=== PATIENT | female | born 1945 | race Caucasian/White ===

== ENCOUNTER 2017-02-28 07:25 | Day surgery (SDC) | payer BC ==
[~2017-02-28 07:25] MED LIST: ASPIRIN EC81 M1 PO; COREG 3.1253.125 MG PO; COREG6.25 MG PO; LISINOPRIL5 MG PO; MOBIC7.5 MG PO; PLAVIX75 MG PO; ZANTAC150 MG PO
[2017-02-28 08:46] LABS: HEMATOCRIT 35.2 % (36.0-48.0); HEMOGLOBIN 11.2 g/dL (12-16); MCH 26.5 pg (26.0-34.0); MCHC 31.8 g/dL (31.0-37.0); MCV 83.4 fL (80.0-100.0); MEAN PLATELET VOLUME 8.8 fL (7.4-10.4); RBC 4.22 10x6/uL (4.00-5.40); WBC 6.9 10x3/uL (4.8-10.8)
[2017-02-28 09:27] VITALS: BP 142/73; BMI 31.9
--- NOTE | 2017-02-28 15:45 | NUR ---
1530--PT VOIDS WITHOUT DIFFICULTY, IV DC'D. MARY BROWNING 3049--DISCHARGE INSTRUCTIONS GIVEN, PT VERBALIZES UNDERSTANDING. PT OFF UNIT VIA WC. MARY BROWNING
--- NOTE | 2017-03-28 11:32 | OP ---
PATIENT NAME: KIZZY HURTADO MEDICAL RECORD: [id number] :41 LOCATION:[facility] ADMISSION DATE: SURGEON: DOC CARPENTER DPM DATE OF OPERATION: 02/28/2017 PREOPERATIVE DIAGNOSIS: Sequela from Lisfranc fracture dislocation 1 year ago. POSTOPERATIVE DIAGNOSIS: Sequela from Lisfranc fracture dislocation 1 year ago. PROCEDURES: 1. Medial cuneiform to middle cuneiform joint fusion. 2. Second met to middle cuneiform joint fusion. ANESTHESIA: Local with IV sedation utilizing lidocaine and Marcaine plain, approximately 18 cc total around the mid foot. HEMOSTASIS: Left thigh tourniquet at 350 mmHg. PREOPERATIVE DETAILS: The patient was taken to the OR, placed on the operating table in a supine position. This was followed by induction of general anesthesia and infiltration of local anesthetic. The left extremity was then prepped and draped in the usual aseptic technique, followed by exsanguination and inflation of tourniquet. DESCRIPTION OF PROCEDURE: Procedure #1, medial cuneiform to middle cuneiform joint fusion: A 15-blade was used to create an incision on the dorsal aspect of the left foot overlying the cuneiforms. The incision was deepened down through subcutaneous tissue being sure to avoid all vital structures. The superficial nerves as well as the deep peroneal nerve as well as the dorsalis pedis artery were visualized and retracted in the wound and preserved. Dissection was carried down to the periosteum. The middle and medial cuneiform joint was exposed. A sagittal saw was used to resect both surfaces, followed by guidewires being placed from medial to lateral. C-arm was used to verify good placement. Overdrill was performed and 2 screws were placed across the fusion site noting excellent rigid internal fixation, placement with C-arm as well as abutment of the fusion site. The incision as described in #1 was carried distally being sure to avoid the vital structures to the second met to middle cuneiform joint, which was freed and resected with sagittal saw followed by placement of bone graft and a 4-hole plate over the top utilizing C-arm for verification of good placement. Excellent alignment was noted. That was procedure #2 of second met to middle cuneiform joint fusion. The deep tissue was then coapted with 2-0 Vicryl, the subcutaneous tissue with 4-0 Rapide, and the skin was closed with 5-0 Prolene in a subcuticular technique followed by Dermabond. The small incisions for the guidewires were also closed with 5-0 Prolene in a simple interrupted technique followed by Dermabond. Adaptic, 4 x 4, and Conform were used to dress the wound, followed by application of modified Smith compression dressing. Tourniquet was deflated. POSTOPERATIVE DETAILS: The patient tolerated the procedure well and left the OR with vital signs stable and vascular status at preop levels. The patient was transported to recovery per anesthesia in stable condition. TRANSINT:[id number] Voice Confirmation ID: [id number] DOCUMENT ID: [id number] OPERATIVE REPORT [id number] KIZZY HURTADO, DOC PIERSON at 1132 CC: [id number] DICTATION DATE: 02/28/17 1307 CASINO GAMING WORKER: 02/28/17 1333 [facility] 02/28/17 [address] [place] [address]
== END 2017-02-28 15:40 | disposition home or self-care (01) ==
LOC: D.OPS 07:25 → D.PAN 12:30 → D.OPS 15:40
PROVIDERS: Anesthesiology
DX: S93.32 Subluxation and dislocation of tarsometatarsal joint (principal); Z01.812 Encounter for preprocedural laboratory examination; X58.XXXS Exposure to other specified factors, sequela

== ENCOUNTER → 2019-06-24 12:17 | Outpatient (CLI) | payer BC | END | disposition home or self-care (01) | LOC: D.CT 12:17 | PROVIDERS: ATTEND Orthopaedic Surgery | DX: M93.20 Osteochondritis dissecans of unspecified site (principal) ==

== ENCOUNTER 2019-09-12 14:30 | Inpatient (IN) | payer BC ==
[~2019-09-12] VITALS: Ht 160 cm; Wt 81.6 kg
[2019-09-30] MEDS ORDERED: BUTALB-APAP-CA1 EACH PO (15:48)
[2019-09-30] MEDS ORDERED: HYDROCODON-ACE1 EA10 PO (15:49)
[2019-09-30] MEDS ORDERED: PROTONIX40 MG PO (15:49)
[2019-09-30] MEDS ORDERED: ZETIA10 MG PO (15:49)
[2019-10-01 12:06] LABS: ANION GAP 5.9 mmol/L (8-16); CALCIUM 8.8 mg/dL (8.5-10.1); CARBON DIOXIDE 33.1 mmol/L (21.0-32.0); CREATININE - SERUM 0.8 mg/dL (0.6-1.3)
[2019-10-01 12:10] LABS: BASOPHILS 0.2 % (0-2); EOSINOPHILS 1.2 % (0-7); HEMATOCRIT 41.2 % (36.0-48.0); IMMATURE GRANULOCYTES 0.3 % (0-5); LYMPHOCYTES 25.3 % (15-50); MCH 27.3 pg (26.0-34.0); MCHC 31.6 g/dL (31.0-37.0); MCV 86.6 fL (80.0-100.0); MEAN PLATELET VOLUME 8.8 fL (7.4-10.4); PLATELET COUNT 292 10x3/uL (130-400); RBC 4.76 10x6/uL (4.00-5.40); RDW 14.3 % (11.5-14.5); WBC 9.1 10x3/uL (4.8-10.8)
[2019-10-01 12:22] LABS: APTT 27.5 SECONDS (22.8-39.4); INR 0.92 (0.85-1.17); PROTIME 12.3 SECONDS (11.6-15.0)
[2019-10-01 13:48] LABS: BILIRUBIN NEGATIVE (NEGATIVE); GLUCOSE NEGATIVE (NEGATIVE); KETONE NEGATIVE (NEGATIVE); NITRITE NEGATIVE (NEGATIVE); RED CELLS - URINE 0-5 /hpf (0-5); UROBILINOGEN NORMAL (NORMAL)
[2019-10-01 13:49] LABS: BACTERIA MODERATE /hpf (NEGATIVE); EPITHELIAL CELLS 0-5 /hpf (0-5)
--- NOTE | 2019-10-01 13:54 | NUR ---
1355-ua results called to dr escobedo office.
[2019-10-06] VITALS (11 sets, daily range): BP systolic 115–147; BP diastolic 51–95; BMI 32.8; BMI 31.9
[2019-10-06] MEDS ORDERED: ANTIBIOTIC (08:36)
[2019-10-06 09:15] LABS: BACTERIA MODERATE /hpf (NEGATIVE); BILIRUBIN NEGATIVE (NEGATIVE); EPITHELIAL CELLS 0-5 /hpf (0-5); GLUCOSE NEGATIVE (NEGATIVE); KETONE NEGATIVE (NEGATIVE); NITRITE NEGATIVE (NEGATIVE); RED CELLS - URINE 0-5 /hpf (0-5); SPECIFIC GRAVITY 1.015 (1.005-1.020); UROBILINOGEN NORMAL (NORMAL); WHITE CELLS - URINE 0-5 /hpf (NEGATIVE)
--- NOTE | 2019-10-06 12:01 | NUR ---
ICE APPLIED ORDERED. CALLED FOR POST OP XRAY.
--- NOTE | 2019-10-06 19:00 | NUR ---
CHELLE AND TONY AT BEDSIDE ASSISTING PATIENT ON AND OFF BEDPAN. ALSO PLACED PATIENT ON CPM MACHINE AT THIS TIME. BED IN LOWEST POSITION AND CALL LIGHT WITHIN REACH. ENCOURAGED THE PATIENT TO CALL IF SHE HAS NEEDS. WILL CONTINUE TO MONITOR.
[2019-10-07 00:07] VITALS: BP 117/49
[2019-10-07 03:49] VITALS: BP 158/59
[2019-10-07 06:43] LABS: HEMATOCRIT 38.1 % (36.0-48.0); HEMOGLOBIN 11.8 g/dL (12-16); MCH 26.8 pg (26.0-34.0); MCV 86.6 fL (80.0-100.0); MEAN PLATELET VOLUME 9.3 fL (7.4-10.4); RBC 4.4 10x6/uL (4.00-5.40); RDW 14.5 % (11.5-14.5); WBC 9.3 10x3/uL (4.8-10.8)
[2019-10-07 08:45] VITALS: BP 144/54
--- NOTE | 2019-10-07 08:53 | NUR ---
ASSESSMENT COMPLETE, VS STABLE. PATIENT CPM REMOVED. RECIEVED SCHEDULED MEDS. COREG NOT GIVEN. BP 144/54. LEFTY HOSE OFF SINCE SHIFT CHANGE. PUT BACK ON LEFT LEG ALONG WITH SCD. RIGHT FOOT PLEXI PULSE PLACED. IV INTACT. NO COMPLAINTS AT THIS TIME. WILL CONTINUE TO MONITOR. CALL LIGHT WITHIN REACH.
[2019-10-07 10:41] VITALS: Ht 160 cm; Wt 81.6 kg
--- NOTE | 2019-10-07 12:56 | OP ---
PATIENT NAME: KIZZY HURTADO MEDICAL RECORD: [id number] :41 LOCATION:D.M3 D.1209 ADMISSION DATE:10/06/19 SURGEON: PAULINA CERRATO MD DATE OF OPERATION: 10/06/2019 PREOPERATIVE DIAGNOSES: Degenerative arthritis of the right knee. POSTOPERATIVE DIAGNOSIS: Degenerative arthritis of the right knee. PROCEDURE: Right total knee arthroplasty. SURGEON: Paulina Cerrato MD ANESTHESIA: General. INTRAOPERATIVE COMPLICATIONS: None. SUMMARY OF PATHOLOGIC FINDINGS: The patient had medial joint line wears along with severe patellofemoral joint wear. IMPLANTS USED: Rocio triathlon total knee arthroplasty, press fit size 4 distal femur, size 4 tibial baseplate, size 9 polyethylene insert, and size 31 mm patella. FOSTER CARE SOCIAL WORKER SURGEON: Vijay Delarosa. SECOND FOSTER CARE SOCIAL WORKER SURGEON: Ziggy Heath FSA OPERATIVE SUMMARY IN DETAIL: After obtaining the appropriate preoperative orthopedic surgery consents as well as anesthetic consultation, evaluation and clearance, the patient was brought to the operating room and placed on the operating table in supine position. After adequate general laryngeal mask airway was administered, tourniquet was placed about the proximal aspect of the right lower extremity. Right lower extremity was then prepped and draped in routine sterile fashion. Leg was elevated, exsanguinated, and tourniquet was inflated to 350 mmHg. At this point, the appropriate timeout was taken and agreed upon by all given the patient's unique identifiers. Routine midline incision was made, taken down to the level of the knee joint. Paramedian arthrotomy was performed. Patella was everted and the distal femur was exposed. Soft tissue excision was done in the usual fashion. An intramedullary guide hole was created for distal femoral cut using intramedullary guidance. Distal femoral cuts were made. The proximal tibia was completely exposed. Further soft tissue was then followed by creating an intramedullary guide hole to the proximal tibia for proximal tibia cut. Proximal tibia cuts were made. Appropriate measurements were taken. Chamfer cuts were then made on the distal femur. All excess bone and osteophytes were removed. Trials were put into place corresponding to the above-mentioned final implants. They were taken through range of motion and found to be stable in all planes. Distal femur was prepared, followed by proximal tibial preparations for press fit. Arthritic surface of patella was excised in preparation for a 31 x 9 patella. Wound was then irrigated copiously in pulsatile lavage fashion. At this point, components were put into place using press fit fashion. After they were put into place, range of motion was taken and found to be stable in all planes with excellent patellar tracking. A gram vancomycin and a gram of tobramycin were then placed into the cavity. The knee was then closed by LAYA Gutierres and Gregorio OPERATIVE REPORT [id number] KIZZY HURTADO FA using #2 Ethibond for the paramedian arthrotomy followed #1 Vicryl, 2-0 Vicryl, and skin wong. Sterile dressings were applied. The patient was awakened and taken to the recovery room in stable condition. All final needle and sponge counts were correct. TRANSINT:[id number] Voice Confirmation ID: [id number] DOCUMENT ID: [id number] SAQIB LINDSAY, PAUILNA WEISS at 1256 CC: [id number] DICTATION DATE: 10/06/19 1127 ANGULAR DEVELOPER: 10/06/19 2154 ADM IN [facility] [address] [place] [address]
[2019-10-07 15:21] VITALS: BP 142/65
--- NOTE | 2019-10-07 17:10 | MORECARE ---
CASE MANAGEMENT DISCHARGE SUMMARY PATIENT: KIZZY HURTADO UNIT: [id number] ADM DATE: 10/06/19 AGE: 74 : 43 SEX: F ROOM/BED: D.1209 AUTHOR: MACKENZIE ANN PHYSICIAN: REFERRING PHYSICIAN: PAULINA CERRATO MD DATE OF SERVICE: 10/07/19 Discharge Plan Patient Name: KIZZY HURTADO Facility: [facility]:[place] : 1945 Planned Disposition: Home Anticipated Discharge Date: Discharge Date: Expected LOS: Initial Reviewer: [email or web address] Initial Review Date: 10/06/2019 Generated: 10/07/19 6:09 pm Patient Name: KIZZY HURTADO Page [id number] at 1710 All edits/amendments must be made on the electronic document DICTATION DATE: 10/07/191709 BRAND LEADER: SPENCER 10/07/191709 RPT#: [id number] DC DATE: STATUS: ADM IN [facility] [address] [place] [address] END OF REPORT
--- NOTE | 2019-10-07 17:16 | MORECARE ---
CASE MANAGEMENT DISCHARGE SUMMARY PATIENT: KIZZY HURTADO UNIT: [id number] ADM DATE: 10/06/19 AGE: 74 : 43 SEX: F ROOM/BED: D.1209 AUTHOR: SETH,DOC PHYSICIAN: REFERRING PHYSICIAN: PAULINA CERRATO MD DATE OF SERVICE: 10/07/19 Discharge Plan Patient Name: KIZZY HURTADO Facility: [facility]:[place] : 1945 Planned Disposition: Home Anticipated Discharge Date: Discharge Date: Expected LOS: Initial Reviewer: [email or web address] Initial Review Date: 10/06/2019 Generated: 10/07/19 6:16 pm Comments DCP- Discharge Planning Updated by [email or web address]: Jolanta Baker on 10/07/19 4:[address] Patient Name: KIZZY HURTADO Admission Status: Elective Accout number: [id number] Admission Date: 10-06-2019 : 1945 Admission Diagnosis:UNILATERAL PRIMARY OSTEOARTHRITIS, RIGHT KNEE Attending: PAULINA CERRATO Current LOS: 1 Anticipated DC Date: Planned Disposition: Home Primary Insurance: [employer] OUT OF STATE Discharge Planning Comments: CM met with patient to complete initial dc planning assessment. CM educated patient on the CM role and verbal consent given by patient to complete assessment. Patient lives at home with family. Patient is independent. At discharge patient plans to return home and feels this is a safe discharge. CM discussed availability of home health, rehab services, and medical equipment. Patient would like to have outpatient therapy with [facility] [phone] . CLIF signed CM will fax orders Patient will have family to transport home. Patient denied known discharge needs at this time. CM will continue to follow and will assist as needed with dc plans/needs. Community Outreach Manager: Jolanta Baker DCPIA - Discharge Planning Initial Assessment Updated by [email or web address]: Jolanta Baker on 10/07/19 5:12 pm * Is the patient Alert and Oriented? Yes * How many steps to enter\exit or inside your home? * PCP GHULAM DICKERSON * [facility] * Preadmission Environment Home with Family * ADLs Independent * Other Equipment WALKER, CPM, BSC - KENIX * List name and contact numbers for known caregivers / representatives who currently or will assist patient after discharge: JAMAAL HURTADO -[facility]- [phone] * Verbal permission to speak to the caregivers and representatives has been obtained from the patient. No * Community resources currently utilized None * Additional services required to return to the preadmission environment? No * Can the patient safely return to the preadmission environment? Yes * Has this patient been hospitalized within the prior 30 days at any hospital? No Last DP export: 10/07/19 4:10 p Patient Name: KIZZY HURTADO Page [phone] at 1716 All edits/amendments must be made on the electronic document DICTATION DATE: 10/07/191715 PROFESSIONAL FEE CODER: SPENCER 10/07/191715 RPT#: [id number] DC DATE: STATUS: ADM IN [facility] [address] [place] [address] END OF REPORT
--- NOTE | 2019-10-07 17:23 | MORECARE ---
CASE MANAGEMENT DISCHARGE SUMMARY PATIENT: KIZZY HURTADO UNIT: [id number] ADM DATE: 10/06/19 AGE: 74 : 43 SEX: F ROOM/BED: D.1209 AUTHOR: SETH,DOC PHYSICIAN: REFERRING PHYSICIAN: PAULINA CERRATO MD DATE OF SERVICE: 10/07/19 Discharge Plan Patient Name: KIZZY HURTADO Facility: [facility]:[place] : 1945 Planned Disposition: Home Anticipated Discharge Date: Discharge Date: Expected LOS: Initial Reviewer: [email or web address] Initial Review Date: 10/06/2019 Generated: 10/07/19 6:23 pm Comments DCP- Discharge Planning Updated by [email or web address]: Jolanta Baker on 10/07/19 4:[address] Patient Name: KIZZY HURTADO Admission Status: Elective Accout number: [id number] Admission Date: 10-06-2019 : 1945 Admission Diagnosis:UNILATERAL PRIMARY OSTEOARTHRITIS, RIGHT KNEE Attending: PAULINA CERRATO Current LOS: 1 Anticipated DC Date: Planned Disposition: Home Primary Insurance: [employer] OUT OF STATE Discharge Planning Comments: CM met with patient to complete initial dc planning assessment. CM educated patient on the CM role and verbal consent given by patient to complete assessment. Patient lives at home with family. Patient is independent. At discharge patient plans to return home and feels this is a safe discharge. CM discussed availability of home health, rehab services, and medical equipment. Patient would like to have outpatient therapy with [facility] [phone] . CLIF signed CM will fax orders Patient will have family to transport home. Patient denied known discharge needs at this time. CM will continue to follow and will assist as needed with dc plans/needs. Quality Control Clerk: Jolanta Baker DCPIA - Discharge Planning Initial Assessment Updated by [email or web address]: Jolanta Baker on 10/07/19 5:12 pm * Is the patient Alert and Oriented? Yes * How many steps to enter\exit or inside your home? * PCP GHULAM DICKERSON * [facility] [place] * Preadmission Environment Home with Family * ADLs Independent * Other Equipment WALKER, CPM, BSC - KENIX * List name and contact numbers for known caregivers / representatives who currently or will assist patient after discharge: JAMAAL HURTADO -[facility]- [phone] * Verbal permission to speak to the caregivers and representatives has been obtained from the patient. No * Community resources currently utilized None * Additional services required to return to the preadmission environment? No * Can the patient safely return to the preadmission environment? Yes * Has this patient been hospitalized within the prior 30 days at any hospital? No External Providers External Provider: OTHER-OTHER Next Contact Date: Service Request Date: Service Type: Resolution: Reviewer: Comments: Last DP export: 10/07/19 4:16 p Patient Name: KIZZY HURTADO Page [phone] at 1723 All edits/amendments must be made on the electronic document DICTATION DATE: 10/07/191722 THERAPEUTIC RECREATION SPECIALIST: SPENCER 10/07/191722 RPT#: [id number] DC DATE: STATUS: ADM IN [facility] [address] [place] [address] END OF REPORT
--- NOTE | 2019-10-07 18:50 | NUR ---
PATIENT IN BED WITH IV INTACT. NO COMPLAINTS OR SIGNS OF DISTRESS. CPM ON AND WORKING. OFF AT 2100. TEDS, PLEXI'S AND SCD ON. CALL LIGHT WITHIN REACH.
--- NOTE | 2019-10-07 19:47 | NUR ---
ALERT RESTING IN BED CPM IN USE, DENIES PAIN OR NEEDS AT THIS TIME, SEE SHIFT ASSESSMENT, CALL LIGHT IN REACH
[2019-10-07 20:00] VITALS: BP 174/62
--- NOTE | 2019-10-07 20:00 | NUR ---
ALERT RESTING IN BED, CPM IN USE, DENIES PAIN OR NEEDS AT THIS TIME, SEE SHIFT ASSESSMENT, CALL LIGHT IN REACH
--- NOTE | 2019-10-07 21:40 | NUR ---
PT DIRECTOR OF EMPLOYER SERVICES LIGHT, PT PLACED ON BED GARCIA, VOIDED 125 MLS OF LIGHT YELLOW URINE BY SELF WITH NO DIFFICULTY, DEN CARE DONE WITH WET WARM WIPES, PINK PAD CHANGED, PT REQUESTS PAIN MED WHEN DUE, INFORMED PT THAT I WILL INFORM HER NURSE, PT DENIES FURTHER NEEDS, BED IN LOW POSITION, SIDE RAILS X 2, CALL LIGHT IN REACH
[2019-10-08] VITALS: BP 105/67; BP 172/68
[2019-10-08 07:02] LABS: HEMATOCRIT 36.3 % (36.0-48.0); HEMOGLOBIN 11.5 g/dL (12-16); MCH 27.3 pg (26.0-34.0); MCHC 31.7 g/dL (31.0-37.0); MCV 86.2 fL (80.0-100.0); MEAN PLATELET VOLUME 9.1 fL (7.4-10.4); RBC 4.21 10x6/uL (4.00-5.40); RDW 14.7 % (11.5-14.5); WBC 11.4 10x3/uL (4.8-10.8)
--- NOTE | 2019-10-08 08:15 | NUR ---
PATIENT NAUSEATED AND NOT FEELING WELL. BP SLIGHTLY ELEVATED. PATIENT ON CPM AT THIS TIME AND HURTING. STATED SHE JUST ISNT FEELING WELL TODAY. IV INTACT. WILL CONTINUE TO MONITOR.
--- NOTE | 2019-10-08 08:55 | NUR ---
PATIENT RECIEVED DIYA AND ABUNDIO. CPM REMOVED. WAITING FOR PT. CALL LIGHT WITHIN REACH.
[2019-10-08 08:56] VITALS: BP 196/65
[2019-10-08 10:45] VITALS: BP 130/46
--- NOTE | 2019-10-08 10:45 | NUR ---
PT HERE WORKING WITH PATIENT. PATIENT NOT DOING WELL. DIZZY AND WENT BACK TO BED. BP 130/46 NOW. WILL CONTINUE TO MONITOR. PATIENT STATED SHE JUST WANTED TO TRY TO NAP AT THIS TIME. CALL LIGHT WITHIN REACH.
--- NOTE | 2019-10-08 11:33 | NUR ---
SPOKE WITH DR. SALMERON AT THIS TIME ABOUT PATIENT BP. NEW ORDERS RECIEVED.
[2019-10-08 12:36] LABS: BASOPHILS 0.1 % (0-2); EOSINOPHILS 0.4 % (0-7); HEMATOCRIT 34.5 % (36.0-48.0); HEMOGLOBIN 11.1 g/dL (12-16); IMMATURE GRANULOCYTES 0.3 % (0-5); LYMPHOCYTES 12.4 % (15-50); MCH 27.5 pg (26.0-34.0); MCHC 32.2 g/dL (31.0-37.0); MCV 85.4 fL (80.0-100.0); MEAN PLATELET VOLUME 8.8 fL (7.4-10.4); MONOCYTES 8.6 % (2-11); NEUTROPHILS 78.2 % (40-80); PLATELET COUNT 224 10x3/uL (130-400); RBC 4.04 10x6/uL (4.00-5.40); RDW 14.6 % (11.5-14.5); WBC 13.9 10x3/uL (4.8-10.8)
[2019-10-08 13:35] VITALS: BP 1146/52; BP 146/52
[2019-10-08 17:41] VITALS: BP 151/61
--- NOTE | 2019-10-08 18:40 | NUR ---
PATIENT IN BED WITH CPM ON. MAY REMOVE AT 2049. PATIENT FEELING ALOT BETTER THAN EARLIER. NAUSEA COMPLETELY GONE AND WAS ABLE TO GET UP AND SIT IN CHAIR. NOTIFIED OF UA NEEDED. VERBALIZED UNDERSTANDING. CALL LIGHT WITHIN REACH.
--- NOTE | 2019-10-08 20:00 | NUR ---
ALERT RESTING IN BED CPM IN USE, DENIES PAIN OR NEEDS AT THIS TIME, SEE SHIFT ASSESSMENT, CALL LIGHT IN REACH
[2019-10-08 21:10] VITALS: BP 143/68
[2019-10-09 03:45] LABS: BILIRUBIN NEGATIVE (NEGATIVE); GLUCOSE NEGATIVE (NEGATIVE); KETONE NEGATIVE (NEGATIVE); NITRITE NEGATIVE (NEGATIVE); SPECIFIC GRAVITY 1.015 (1.005-1.020); UROBILINOGEN NORMAL (NORMAL)
[2019-10-09 03:51] LABS: BACTERIA FEW /hpf (NEGATIVE); EPITHELIAL CELLS 0-5 /hpf (0-5); RED CELLS - URINE 0-5 /hpf (0-5); WHITE CELLS - URINE 0-5 /hpf (NEGATIVE)
[2019-10-09 05:18] VITALS: BP 146/64
[2019-10-09 06:37] LABS: ANION GAP 9.3 mmol/L (8-16); CALCIUM 8.1 mg/dL (8.5-10.1); CARBON DIOXIDE 29.8 mmol/L (21.0-32.0); CREATININE - SERUM 0.8 mg/dL (0.6-1.3); MAGNESIUM - SERUM 2.2 mg/dL (1.8-2.4); POTASSIUM - SERUM 4.1 mmol/L (3.5-5.1)
[2019-10-09 07:29] LABS: BASOPHILS 0.1 % (0-2); EOSINOPHILS 0.5 % (0-7); HEMATOCRIT 34.3 % (36.0-48.0); HEMOGLOBIN 10.8 g/dL (12-16); IMMATURE GRANULOCYTES 0.3 % (0-5); LYMPHOCYTES 15.6 % (15-50); MCH 27.3 pg (26.0-34.0); MCHC 31.5 g/dL (31.0-37.0); MCV 86.6 fL (80.0-100.0); MEAN PLATELET VOLUME 9.5 fL (7.4-10.4); MONOCYTES 9.8 % (2-11); NEUTROPHILS 73.7 % (40-80); PLATELET COUNT 257 10x3/uL (130-400); RBC 3.96 10x6/uL (4.00-5.40); RDW 14.7 % (11.5-14.5); WBC 14.2 10x3/uL (4.8-10.8)
--- NOTE | 2019-10-09 07:30 | NUR ---
AWAKE AND ALERT. ORIENTED X3. REQUESTED PAIN MEDS AT THIS TIME. GIVEN HYDORCODONE PO FOR SAME. WILL MONITOR. LUNGS ARE CLEAR BILATERALLY, NO COUGH NOTED. REPORTS USING IS INSTRUCTED. SKIN IS INTACT WITHOUT REDNESS EXCEPT INCISION TO LEFT KNEE WHICH HAS A DRY INTACT DRESSING IN PLACE. SL TO LEFT FOREARM IS PATENT WITHOUT REDNESS AT INSERTION SITE. DENIES NEEDS.
[2019-10-09 08:20] VITALS: BP 125/83
[2019-10-09 11:35] VITALS: BP 153/61
[2019-10-09] MEDS ORDERED: ELIQUIS2.5 MG PO (12:45)
[2019-10-09] MEDS ORDERED: HYDROCODON-ACE1 EA10 PO (12:45)
[2019-10-09] MEDS ORDERED: MACROBID100 MG PO (12:45)
--- NOTE | 2019-10-09 14:26 | MORECARE ---
CASE MANAGEMENT DISCHARGE SUMMARY PATIENT: KIZZY HURTADO UNIT: [id number] ADM DATE: 10/06/19 AGE: 74 : 43 SEX: F ROOM/BED: D.1209 AUTHOR: SETH,DOC PHYSICIAN: REFERRING PHYSICIAN: PAULINA CERRATO MD DATE OF SERVICE: 10/09/19 Discharge Plan Patient Name: KIZZY HRUTADO Facility: [facility]:[place] : 1945 Planned Disposition: Home Anticipated Discharge Date: Discharge Date: Expected LOS: Initial Reviewer: [email or web address] Initial Review Date: 10/06/2019 Generated: 10/09/19 3:25 pm Comments DCP- Discharge Planning Updated by [email or web address]: Jolanta Baker on 10/07/19 4:[address] Patient Name: KIZZY HURTADO Admission Status: Elective Accout number: [id number] Admission Date: 10-06-2019 : 1945 Admission Diagnosis:UNILATERAL PRIMARY OSTEOARTHRITIS, RIGHT KNEE Attending: PAULINA CERRATO Current LOS: 1 Anticipated DC Date: Planned Disposition: Home Primary Insurance: [employer] OUT OF STATE Discharge Planning Comments: CM met with patient to complete initial dc planning assessment. CM educated patient on the CM role and verbal consent given by patient to complete assessment. Patient lives at home with family. Patient is independent. At discharge patient plans to return home and feels this is a safe discharge. CM discussed availability of home health, rehab services, and medical equipment. Patient would like to have outpatient therapy with [facility] [phone] . CLIF signed CM will fax orders Patient will have family to transport home. Patient denied known discharge needs at this time. CM will continue to follow and will assist as needed with dc plans/needs. Gymnastic Coach: Jolanta Baker DCPIA - Discharge Planning Initial Assessment Updated by [email or web address]: Jolanta Baker on 10/07/19 5:12 pm * Is the patient Alert and Oriented? Yes * How many steps to enter\exit or inside your home? * PCP GHULAM DICKERSON * [facility] [place] * Preadmission Environment Home with Family * ADLs Independent * Other Equipment WALKER, CPM, BSC - KENIX * List name and contact numbers for known caregivers / representatives who currently or will assist patient after discharge: JAMAAL HURTADO -[facility]- [phone] * Verbal permission to speak to the caregivers and representatives has been obtained from the patient. No * Community resources currently utilized None * Additional services required to return to the preadmission environment? No * Can the patient safely return to the preadmission environment? Yes * Has this patient been hospitalized within the prior 30 days at any hospital? No External Providers External Provider: [facility] Next Contact Date: Service Request Date: Service Type: Resolution: Reviewer: Comments: Last DP export: 10/07/19 4:23 p Patient Name: KIZZY HURTADO Page [phone] at 1426 All edits/amendments must be made on the electronic document DICTATION DATE: 10/09/19 142 MANAGER MENTAL HEALTH: SPENCER 10/09/19 1425 RPT#: [id number] DC DATE: STATUS: ADM IN [facility] [address] [place] [address] END OF REPORT
--- NOTE | 2019-10-09 14:33 | MORECARE ---
CASE MANAGEMENT DISCHARGE SUMMARY PATIENT: KIZZY HURTADO UNIT: [id number] ADM DATE: 10/06/19 AGE: 74 : 43 SEX: F ROOM/BED: D.1209 AUTHOR: SETH,DOC PHYSICIAN: REFERRING PHYSICIAN: PAULINA CERRATO MD DATE OF SERVICE: 10/09/19 Discharge Plan Patient Name: KIZZY HURTADO Facility: [facility]:[place] : 1945 Planned Disposition: Home Anticipated Discharge Date: Discharge Date: Expected LOS: Initial Reviewer: [email or web address] Initial Review Date: 10/06/2019 Generated: 10/09/19 3:33 pm Comments DCP- Discharge Planning Updated by [email or web address]: Jolanta Baker on 10/07/19 4:[address] Patient Name: KIZZY HURTADO Admission Status: Elective Accout number: [id number] Admission Date: 10-06-2019 : 1945 Admission Diagnosis:UNILATERAL PRIMARY OSTEOARTHRITIS, RIGHT KNEE Attending: PAULINA CERRATO Current LOS: 1 Anticipated DC Date: Planned Disposition: Home Primary Insurance: [employer] OUT OF STATE Discharge Planning Comments: CM met with patient to complete initial dc planning assessment. CM educated patient on the CM role and verbal consent given by patient to complete assessment. Patient lives at home with family. Patient is independent. At discharge patient plans to return home and feels this is a safe discharge. CM discussed availability of home health, rehab services, and medical equipment. Patient would like to have outpatient therapy with [facility] [phone] . CLIF signed CM will fax orders Patient will have family to transport home. Patient denied known discharge needs at this time. CM will continue to follow and will assist as needed with dc plans/needs. Manager Exchange: Jolanta Baker DCPIA - Discharge Planning Initial Assessment Updated by [id number]: Jolanta Baker on 10/07/19 5:12 pm * Is the patient Alert and Oriented? Yes * How many steps to enter\exit or inside your home? * PCP GHULAM DICKERSON * [facility] [place] * Preadmission Environment Home with Family * ADLs Independent * Other Equipment WALKER, CPM, BSC - KENIX * List name and contact numbers for known caregivers / representatives who currently or will assist patient after discharge: JAMAAL HURTADO -[facility]- [phone] * Verbal permission to speak to the caregivers and representatives has been obtained from the patient. No * Community resources currently utilized None * Additional services required to return to the preadmission environment? No * Can the patient safely return to the preadmission environment? Yes * Has this patient been hospitalized within the prior 30 days at any hospital? No External Providers External Provider: Ushi Next Contact Date: Service Request Date: Service Type: Resolution: Reviewer: Comments: Last DP export: 10/09/19 1:26 p Patient Name: KIZZY HURTADO Page [phone] at 1433 All edits/amendments must be made on the electronic document DICTATION DATE: 10/09/191432 WORKPLACE REHABILITATION OFFICER: SPENCER 10/09/19 1433 RPT#: [id number] IN DATE: STATUS: ADM IN [facility] [address] [place] [address] END OF REPORT
--- NOTE | 2019-10-09 14:56 | MORECARE ---
CASE MANAGEMENT DISCHARGE SUMMARY PATIENT: KIZZY HURTADO UNIT: [id number] ADM DATE: 10/06/19 AGE: 74 : 41 SEX: F ROOM/BED: D.1209 AUTHOR: SETH,DOC PHYSICIAN: REFERRING PHYSICIAN: PAULINA CERRATO MD DATE OF SERVICE: 10/09/19 Discharge Plan Patient Name: KIZZY HURTADO Facility: [facility]:[place] : 1945 Planned Disposition: Home Anticipated Discharge Date: Discharge Date: Expected LOS: Initial Reviewer: [email or web address] Initial Review Date: 10/06/2019 Generated: 10/09/19 3:55 pm Comments DCP- Discharge Planning Updated by [email or web address]: Margaret Ramos on 10/09/19 1:[address] CM met with patient about discharge. She would like to use [employer] or [facility], but states "whoever can take my insurance and see me." [facility] and she states they do not have therapy available at this time and decline admission. I called [facility] and spoke with Lea and clinical and order faxed. Lea will call back if they can accept her insurance. Discharge is on hold for today. DCP- Discharge Planning Updated by [email or web address]: Jolanta Baker on 10/07/19 4:[address] Patient Name: KIZZY HURTADO Admission Status: Elective Accout number: [id number] Admission Date: 10-06-2019 : 1945 Admission Diagnosis:UNILATERAL PRIMARY OSTEOARTHRITIS, RIGHT KNEE Attending: PAULINA CERRATO Current LOS: 1 Anticipated DC Date: Planned Disposition: Home Primary Insurance: BLUE CROSS OUT OF STATE Discharge Planning Comments: CM met with patient to complete initial dc planning assessment. CM educated patient on the CM role and verbal consent given by patient to complete assessment. Patient lives at home with family. Patient is independent. At discharge patient plans to return home and feels this is a safe discharge. CM discussed availability of home health, rehab services, and medical equipment. Patient [facility] with [facility] [phone] . CLIF signed CM will fax orders Patient will have family to transport home. Patient denied known discharge needs at this time. CM will continue to follow and will assist as needed with dc plans/needs. Tractor Sweeper Operator: Jolanta Baker DCPIA - Discharge Planning Initial Assessment Updated by [email or web address]: Jolanta Baker on 10/07/19 5:12 pm * Is the patient Alert and Oriented? Yes * How many steps to enter\\exit or inside your home? * PCP GHULAM DICKERSON * Pharmacy [facility] [place] * Preadmission Environment Home with Family * ADLs Independent * Other Equipment WALKER, CPM, BSC - [facility] * List name and contact numbers for known caregivers / representatives who currently or will assist patient after discharge: JAMAAL HURTADO -[facility]- [phone] * Verbal permission to speak to the caregivers and representatives has been obtained from the patient. No * Community resources currently utilized None * Additional services required to return to the preadmission environment? No * Can the patient safely return to the preadmission environment? Yes * Has this patient been hospitalized within the prior 30 days at any hospital? No External Providers External Provider: [facility] Next Contact Date: Service Request Date: Service Type: Resolution: Reviewer: Comments: Last DP export: 10/09/19 1:33 p Patient Name: KIZZY HURTADO Page [id number] at 1456 All edits/amendments must be made on the electronic document DICTATION DATE: 10/09/191454 AUTO BODY PAINTER: SPENCER 10/09/193 RPT#: [id number] DC DATE: STATUS: ADM IN [facility] [address] [place] [address] END OF REPORT
--- NOTE | 2019-10-09 15:03 | MORECARE ---
CASE MANAGEMENT DISCHARGE SUMMARY PATIENT: KIZZY HURTADO UNIT: [id number] ADM DATE: 10/06/19 AGE: 74 : 43 SEX: F ROOM/BED: D.1209 AUTHOR: SETH,DOC PHYSICIAN: REFERRING PHYSICIAN: PAULINA CERRATO MD DATE OF SERVICE: 10/09/19 Discharge Plan Patient Name: KIZZY HURTADO Facility: [facility]:[place] : 1945 Planned Disposition: Home Anticipated Discharge Date: Discharge Date: Expected LOS: Initial Reviewer: [id number] Initial Review Date: 10/06/2019 Generated: 10/09/19 4:03 pm Comments DCP- Discharge Planning Updated by [email or web address]: Margaret Ramos on 10/09/19 1:[address] CM met with patient about discharge. She would like to use [employer] or [facility], but states "whoever can take my insurance and see me." [facility] and she states they do not have therapy available at this time and decline admission. I called [facility] and spoke with Lea and jamla and order faxed. Lea will call back if they can accept her insurance. Discharge is on hold for today. DCP- Discharge Planning Updated by [email or web address]: Jolanta Baker on 10/07/19 4:[address] Patient Name: KIZZY HURTADO Admission Status: Elective Accout number: [id number] Admission Date: 10-06-2019 : 1945 Admission Diagnosis:UNILATERAL PRIMARY OSTEOARTHRITIS, RIGHT KNEE Attending: PAULINA CERRATO Current LOS: 1 Anticipated DC Date: Planned Disposition: Home Primary Insurance: BLUE CROSS OUT OF STATE Discharge Planning Comments: CM met with patient to complete initial dc planning assessment. CM educated patient on the CM role and verbal consent given by patient to complete assessment. Patient lives at home with family. Patient is independent. At discharge patient plans to return home and feels this is a safe discharge. CM discussed availability of home health, rehab services, and medical equipment. Patient [facility] with [facility] [phone] . CLIF signed CM will fax orders Patient will have family to transport home. Patient denied known discharge needs at this time. CM will continue to follow and will assist as needed with dc plans/needs. Chief Program Officer: Jolanta Baker DCPIA - Discharge Planning Initial Assessment Updated by [email or web address]: Jolanta Baker on 10/07/19 5:12 pm * Is the patient Alert and Oriented? Yes * How many steps to enter\\exit or inside your home? * PCP GHULAM DICKERSON * Pharmacy [facility] [place] * Preadmission Environment Home with Family * ADLs Independent * Other Equipment WALKER, CPM, BSC - [employer] * List name and contact numbers for known caregivers / representatives who currently or will assist patient after discharge: JAMAAL HURTADO -[facility]- [phone] * Verbal permission to speak to the caregivers and representatives has been obtained from the patient. No * Community resources currently utilized None * Additional services required to return to the preadmission environment? No * Can the patient safely return to the preadmission environment? Yes * Has this patient been hospitalized within the prior 30 days at any hospital? No Coverage Notice Reviewer: [id number] Linda Ramos Notice Issued Date-Time: 10/09/2019 14:54 Notice Type: Patient Choice Letter Notice Delivered To: Patient Relationship to Patient: Self Paper Sealer Name: Delivery Method: HAND - Hand Delivered Alejandra Days: Prior Verbal Notification: Recipient Understood Notice: Yes Recipient Signature: Yes Med Rec Note Co-signed by Attending: Coverage Notice Comment: CLIF for [facility] or [facility] Last DP export: 10/09/19 1:56 p Patient Name: KIZZY HURTADO Page [phone] at 1503 All edits/amendments must be made on the electronic document DICTATION DATE: 10/09/19 1503 CORNCOB PIPES ASSEMBLER: SPENCER 10/09/19 1503 RPT#: [id number] DC DATE: STATUS: ADM IN [facility] [address] [place] [address] END OF REPORT
--- NOTE | 2019-10-09 15:22 | NUR ---
REQUESTED AND GIVEN ONE HYDROCODONE PO FOR C/O RIGHT KNEE PAIN LEVEL 5. WILL MONITOR.
--- NOTE | 2019-10-09 15:26 | NUR ---
AMBULATED OVER 75 FEET WITH PT AFTER GIVEN ANTIVERT. DENIES NEEDS.
[2019-10-09 15:36] VITALS: BP 129/66
--- NOTE | 2019-10-09 17:30 | NUR ---
ATE MOST OF SUPPER ABOUT 75%. UP TO BSC WITH ONE PERSON ASSIST. VOIDED WITHOUT DIFFICULTY, CLEAR YELLOW URINE. CPM ON AT THIS TIME. DENIES NEEDS.
[2019-10-09 19:24] VITALS: BP 164/57
--- NOTE | 2019-10-09 20:00 | NUR ---
ALERT RESTING IN BED WITH CPM IN USE, SEE SHIFT ASSESSMENT, CALL MIHAELA ABURTO
[2019-10-10 03:44] VITALS: BP 158/67
[2019-10-10 07:05] LABS: BASOPHILS 0.1 % (0-2); EOSINOPHILS 1.1 % (0-7); HEMATOCRIT 33.2 % (36.0-48.0); HEMOGLOBIN 10.5 g/dL (12-16); IMMATURE GRANULOCYTES 0.2 % (0-5); LYMPHOCYTES 22.1 % (15-50); MCH 27.7 pg (26.0-34.0); MCHC 31.6 g/dL (31.0-37.0); MCV 87.6 fL (80.0-100.0); MEAN PLATELET VOLUME 9.3 fL (7.4-10.4); MONOCYTES 7.2 % (2-11); NEUTROPHILS 69.3 % (40-80); PLATELET COUNT 261 10x3/uL (130-400); RBC 3.79 10x6/uL (4.00-5.40); RDW 14.5 % (11.5-14.5); WBC 11.2 10x3/uL (4.8-10.8)
[2019-10-10 07:24] LABS: CALC OSMOLALITY 272 mosm/kg (275-300); CALCIUM 7.8 mg/dL (8.5-10.1); CARBON DIOXIDE 27.9 mmol/L (21.0-32.0); CHLORIDE - SERUM 101 mmol/L (98-107); CREATININE - SERUM 0.7 mg/dL (0.6-1.3); GLUCOSE 105 mg/dL (74-106); MAGNESIUM - SERUM 2.1 mg/dL (1.8-2.4); PHOSPHOROUS 3.6 mg/dL (2.5-4.9); POTASSIUM - SERUM 4.2 mmol/L (3.5-5.1); SODIUM 136 mmol/L (136-145); UREA NITROGEN 14 mg/dL (7-18); eGFR NON AFRICAN AMERICAN 86 mL/min (90-120)
[2019-10-10 07:30] VITALS: BP 163/69
--- NOTE | 2019-10-10 07:52 | NUR ---
AWAKE AND ALERT. ORIENTED X3. NO C/O THIS AM. DENIES NAUSEA AND DIZZINESS. LUNGS ARE CLEAR BILATERALLY, NO COUGH NOTED. REPORTS USING IS INSTRUCTED. SKIN IS INTACT WITHOUT REDNESS EXCEPT INCISION TO RIGHT KNEE WHICH HAS A DRY INTACT DRESSING IN PLACE. IV TO LEFT WRIST/FOREARM IS PATENT WITHOUT REDNESS AT INSERTION SITE. SITTING UP IN BED EATING BREAKFAST. CPM IN PLACE.
--- NOTE | 2019-10-10 09:08 | NUR ---
ATE MOST OF BREAKFAST TRAY. DENIES NAUSEA. TOOK AM MEDS WITHOUT DIFFICULTY. UP TO BR WITH ONE PERSON MIN ASSIST. VOIDED CLEAR YELLOW URINE WITHOUT DIFFICULTY. REQUESTED AND GIVEN ONE HYDROCODONE PO FOR C/O RIGHT KNEE PAIN LEVEL 7. WILL MONITOR.
--- NOTE | 2019-10-10 11:00 | NUR ---
AMBULATED IN [place] WITH PT AND RW WITHOUT NAUSEA OR DIZZINESS.
[2019-10-10 12:17] VITALS: BP 137/58
--- NOTE | 2019-10-10 12:30 | NUR ---
ATE MOST OF LUNCH TRAY. DENIES NEEDS. UP TO BSC WITH ONE PERSON MIN ASSIST.
--- NOTE | 2019-10-10 12:33 | MORECARE ---
CASE MANAGEMENT DISCHARGE SUMMARY PATIENT: KIZZY HURTADO UNIT: [id number] ADM DATE: 10/06/19 AGE: 74 : 43 SEX: F ROOM/BED: D.1209 AUTHOR: MACKENZIE ANN PHYSICIAN: REFERRING PHYSICIAN: PAULINA CERRATO MD DATE OF SERVICE: 10/10/19 Discharge Plan Patient Name: KIZZY HURTADO Facility: [facility]:[place] : 1945 Planned Disposition: Home Anticipated Discharge Date: Discharge Date: Expected LOS: Initial Reviewer: [email or web address] Initial Review Date: 10/06/2019 Generated: 10/10/19 1:33 pm Comments DCP- Discharge Planning Updated by [id number]: Margaret Ramos on 10/10/19 11:[address] CM spoke with [place] [facility], Yumiko states she can accept the patient. States they do not know yet if in network, so patient may have a copay. [employer] in [place] #[phone]. DC paper work faxed. DCP- Discharge Planning Updated by [email or web address]: Margaret Ramos on 10/09/19 1:[address] CM met with patient about discharge. She would like to use [facility] or [facility], but states "whoever can take my insurance and see me." I called [facility] and she states they do not have therapy available at this time and decline admission. I called [employer] [facility] and spoke with Lea and clinical and order faxed. Lea will call back if they can accept her insurance. Discharge is on hold for today. DCP- Discharge Planning Updated by [email or web address]: Jolanta Baker on 10/07/19 4:[address] Patient Name: KIZZY HURTADO Admission Status: Elective Accout number: [id number] Admission Date: 10-06-2019 : 1945 Admission Diagnosis:UNILATERAL PRIMARY OSTEOARTHRITIS, RIGHT KNEE Attending: PAULINA CERRATO Current LOS: 1 Anticipated DC Date: Planned Disposition: Home Primary Insurance: BLUE CROSS OUT OF STATE Discharge Planning Comments: CM met with patient to complete initial dc planning assessment. CM educated patient on the CM role and verbal consent given by patient to complete assessment. Patient lives at home with family. Patient is independent. At discharge patient plans to return home and feels this is a safe discharge. CM discussed availability of home health, rehab services, and medical equipment. Patient would like to have outpatient therapy with [facility] [phone] . CLIF signed CM will fax orders Patient will have family to transport home. Patient denied known discharge needs at this time. CM will continue to follow and will assist as needed with dc plans/needs. Care Administrative Tech: Jolanta Baker DCPIA - Discharge Planning Initial Assessment Updated by [email or web address]: Jolanta Baker on 10/07/19 5:12 pm * Is the patient Alert and Oriented? Yes * How many steps to enter\\exit or inside your home? * PCP GHULAM DICKERSON * Pharmacy [facility] * Preadmission Environment Home with Family * ADLs Independent * Other Equipment WALKER, CPM, BSC - [facility]ENIX * List name and contact numbers for known caregivers / representatives who currently or will assist patient after discharge: JAMAAL HURTADO -[facility]- [phone] * Verbal permission to speak to the caregivers and representatives has been obtained from the patient. No * Community resources currently utilized None * Additional services required to return to the preadmission environment? No * Can the patient safely return to the preadmission environment? Yes * Has this patient been hospitalized within the prior 30 days at any hospital? No Coverage Notice Reviewer: [id number] Linda Ramos Notice Issued Date-Time: 10/09/2019 14:54 Notice Type: Patient Choice Letter Notice Delivered To: Patient Relationship to Patient: Self Hydroblaster Name: Delivery Method: HAND - Hand Delivered Alejandra Days: Prior Verbal Notification: Recipient Understood Notice: Yes Recipient Signature: Yes Med Rec Note Co-signed by Attending: Coverage Notice Comment: CLIF for [facility] or [facility] Last DP export: 10/09/19 2:03 p Patient Name: KIZZY HURTADO Page [phone] at 1233 All edits/amendments must be made on the electronic document DICTATION DATE: 10/10/19 1233 FOREST ECOLOGIST: SPENCER 10/10/19 1233 RPT#: [id number] DC DATE: STATUS: ADM IN [facility] [address] [place] [address] END OF REPORT
--- NOTE | 2019-10-10 14:35 | NUR ---
DISCHARGED TO HOME AMBULATORY WITH . DISCHARGE INSTRUCTIONS GIVEN BOTH VERBALLY AND WRITTEN. ALL QUESTIONS ANSWERED. PATIENT AND VERBALIZED UNDERSTANDING OF SAME. NEEDED PRESCRIPTIONS ESCRIBED TO PHARMACY OF CHOICE. IV TO LEFT FOREARM D/C WITH CATHETER INTACT. DRESSING TO RIGHT KNEE IS DRY AND INTACT. OUTER WRAPINGS D/C. 2 EXTRA AQUACELL DRESSINGS SENT HOME WITH PATIENT. ALL BELONGINGS WITH PATIENT.
--- NOTE | 2019-10-13 18:25 | MORECARE ---
CASE MANAGEMENT DISCHARGE SUMMARY PATIENT: KIZZY HURTADO UNIT: [id number] ADM DATE: 10/06/19 AGE: 74 : 43 SEX: F ROOM/BED: D.1209 AUTHOR: MACKENZIE ANN PHYSICIAN: REFERRING PHYSICIAN: PAULINA CERRATO MD DATE OF SERVICE: 10/13/19 Discharge Plan Patient Name: KIZZY HURTADO Facility: [facility]:[place] : 1945 Planned Disposition: Home Anticipated Discharge Date: Discharge Date: 10/10/2019 Expected LOS: Initial Reviewer: [email or web address] Initial Review Date: 10/06/2019 Generated: 10/13/19 7:25 pm Comments DCP- Discharge Planning Updated by [email or web address]: Margaret Ramos on 10/10/19 11:[address] CM spoke with [employer], Yumiko states she can accept the patient. States they do not know yet if in network, so patient may have a copay. [employer] in [place] #[phone]. DC paper work faxed. DCP- Discharge Planning Updated by [email or web address]: Margaret Ramos on 10/09/19 1:[address] CM met with patient about discharge. She would like to use [employer] or [facility], but states "whoever can take my insurance and see me." I called [facility] and she states they do not have therapy available at this time and decline admission. I called [employer] and spoke with Lea and clinical and order faxed. Lea will call back if they can accept her insurance. Discharge is on hold for today. DCP- Discharge Planning Updated by [id number]: Jolanta Baker on 10/07/19 4:[address] Patient Name: KIZZY HURTADO Admission Status: Elective Accout number: [id number] Admission Date: 10-06-2019 : 1945 Admission Diagnosis:UNILATERAL PRIMARY OSTEOARTHRITIS, RIGHT KNEE Attending: PAULINA CERRATO Current LOS: 1 Anticipated DC Date: Planned Disposition: Home Primary Insurance: BLUE [employer] OUT OF STATE Discharge Planning Comments: CM met with patient to complete initial dc planning assessment. CM educated patient on the CM role and verbal consent given by patient to complete assessment. Patient lives at home with family. Patient is independent. At discharge patient plans to return home and feels this is a safe discharge. CM discussed availability of home health, rehab services, and medical equipment. Patient would like to have outpatient therapy with [facility] [phone] . CLIF signed CM will fax orders Patient will have family to transport home. Patient denied known discharge needs at this time. CM will continue to follow and will assist as needed with dc plans/needs. Six Pack Packer: Jolanta Baker DCPIA - Discharge Planning Initial Assessment Updated by [email or web address]: Jolanta Baker on 10/07/19 5:12 pm * Is the patient Alert and Oriented? Yes * How many steps to enter\\exit or inside your home? * PCP GHULAM DICKERSON * Pharmacy [facility] * Preadmission Environment Home with Family * ADLs Independent * Other Equipment WALKER, CPM, BSC - KENIX * List name and contact numbers for known caregivers / representatives who currently or will assist patient after discharge: JAMAAL HURTADO -[facility]- [phone] * Verbal permission to speak to the caregivers and representatives has been obtained from the patient. No * Community resources currently utilized None * Additional services required to return to the preadmission environment? No * Can the patient safely return to the preadmission environment? Yes * Has this patient been hospitalized within the prior 30 days at any hospital? No Coverage Notice Reviewer: [email or web address] Linda Ramos Notice Issued Date-Time: 10/09/2019 14:54 Notice Type: Patient Choice Letter Notice Delivered To: Patient Relationship to Patient: Self Business Mail Entry Clerk Name: Delivery Method: HAND - Hand Delivered Alejandra Days: Prior Verbal Notification: Recipient Understood Notice: Yes Recipient Signature: Yes Med Rec Note Co-signed by Attending: Coverage Notice Comment: CLIF for [facility] or [facility] Last DP export: 10/10/19 11:34 a Patient Name: IKZZY HURTADO Page [id number] at 8574 All edits/amendments must be made on the electronic document DICTATION DATE: 10/13/191824 LODE MINER: SPENCER 10/13/191824 RPT#: [id number] DC DATE:10/10/19 STATUS: DIS IN [facility] [address] [place] [address] END OF REPORT
== END 2019-10-10 14:59 | disposition home health service (06) | DRG 470 ==
LOC: D.M3 10-06 08:00 → D.SDCHOLD 10-06 08:00 → D.M3 10-06 11:50
PROVIDERS: Family Medicine; ADMIT Orthopaedic Surgery; ATTEND Orthopaedic Surgery
PROC: 0SRC0JA Replacement of Right Knee Joint with Synthetic Substitute, Uncemented, Open Approach (ICD-10-PCS; principal; 2019-10-06 09:15)
DX: M17.11 Unilateral primary osteoarthritis, right knee (principal); N39.0 Urinary tract infection, site not specified; I10 Essential (primary) hypertension; D64.9 Anemia, unspecified; I25.10 Atherosclerotic heart disease of native coronary artery without angina pectoris; K21.9 Gastro-esophageal reflux disease without esophagitis; K59.00 Constipation, unspecified; Z72.0 Tobacco use

== ENCOUNTER → 2019-09-24 16:05 | Outpatient (CLI) | payer BC | END | disposition home or self-care (01) | LOC: D.LABREF 16:05 | PROVIDERS: ATTEND Orthopaedic Surgery | DX: M17.11 Unilateral primary osteoarthritis, right knee (principal) ==

== ENCOUNTER → 2019-09-24 16:59 | Outpatient (CLI) | payer BC | END | disposition home or self-care (01) | LOC: D.LABREF 16:59 | PROVIDERS: ATTEND Orthopaedic Surgery | DX: M17.11 Unilateral primary osteoarthritis, right knee (principal) ==